=== PATIENT | female | born 1995 | race Caucasian/White ===

== ENCOUNTER 2017-01-20 20:26 | Emergency (ER) | payer SELFPAY ==
[2017-01-20 21:43] LABS: URINE APPEARANCE CLEAR; URINE BILIRUBIN NEG (NEG); URINE BLOOD NEG (NEG); URINE COLOR YELLOW; URINE GLUCOSE NEG (NEG); URINE KETONE NEG (NEG); URINE LEUKOCYTE ESTERASE NEG (NEG); URINE NITRATE NEG (NEG); URINE PROTEIN NEG (NEG); URINE SPECIFIC GRAVITY 1.003 (1.003-1.035); URINE UROBILINOGEN 0.2 MG/DL (NEG)
[2017-01-20 21:53] LABS: CULTURE INDICATED? NO
[2017-01-23 14:17] LABS: CHLAMYDIA TRACH Detected (Not Detected); N GONOR Not Detected (Not Detected)
== END 2017-01-20 22:49 | disposition home or self-care (01) ==
LOC: CED 20:26 → CFTX 20:26 → CED 21:07 → CFTX 21:07
PROVIDERS: Nurse Practitioner Family
DX: T19.2XXA Foreign body in vulva and vagina, initial encounter (principal); R30.0 Dysuria; F17.210 Nicotine dependence, cigarettes, uncomplicated; M41.9 Scoliosis, unspecified
CPT/HCPCS: 81003; 84703; 87491; 87591; 87808; 87905; 99284